=== PATIENT | male | born 1980 | race Caucasian/White ===

== ENCOUNTER 2017-05-06 23:42 | Emergency (ER) | payer MEDICAID ==
[2017-05-07] MEDS ORDERED: Sodium Chloride 0.9% 1,000 ML IV ONE (00:09)
--- NOTE | 2017-05-07 00:14 | ED Physician Chart ---
Chief Complaint/HPI - Patient Information Date Seen:: 05/07/17 Time Seen:: 00:09 Chief Complaint:: etoh History of Present Illness:: pt brought in by ems after was found outside a bar w obv etoh intoxication. pt says he fell and hit his head this am. no loc. no neck pain. denies he had any medical eval since then. pt denies any recent medical care elsewhere but has tape on rt arm and recent needle ranjeet/puncture in rt antecubital vein...pt story changes when I point this out...he first denies any recent dr visits then admits was at [facility] sometime after this is pointed out to pt. Allergies:: Allergies Allergy/AdvReac Type Severity Reaction Status Date / Time No Known Allergies Allergy Verified 05/07/17 00:07 Historian:: Patient, EMS Review:: Transfer documents Reviewed Review of Systems - Review of Systems General/Constitutional: No fever, No chills, No weight loss, No weakness, No diaphoresis, No edema, No loss of appetite Skin: No skin lesions, No rash, No bruising Head: No headache, No light-headedness Eyes: No loss of vision, No pain, No diplopia ENT: No earache, No nasal drainage, No sore throat, No tinnitus Neck: No neck pain, No swelling, No thyromegaly, No stiffness, No mass noted Cardio Vascular: No chest pain, No palpitations, No PND, No orthopnea, No edema Pulmonary: No SOB, No cough, No sputum, No wheezing GI: No nausea, No vomiting, No diarrhea, No pain, No melena, No hematochezia, No constipation, No hematemesis G/U: No dysuria, No frequency, No hematuria Musculoskeletal: No bone or joint pain, No back pain, No muscle pain Endocrine: No polyuria, No polydipsia Psychiatric: No prior psych history, No depression, No anxiety, No suicidal ideation Hematopoietic: No bruising, No lymphadenopathy Allergic/Immuno: No urticaria, No angioedema Neurological: No syncope, No focal symptoms, No weakness, No paresthesia, No headache, No seizure, No dizziness, No confusion, No vertigo, Other (etoh intoxication) Past Medical History - Past Medical History Past Medical History: No significant medical hx Social History: Alcohol Medication: Reviewed Family Medical History - Family Member Mother History Unknown: Yes Physical Exam - Physical Examination General/Constitutional: Awake, Well-developed, well-nourished, Alert, No distress, GCS 15, Non-toxic appearing, Ambulatory Other Head comments:: abrasion rt forehead//clean w band aid applied. no infection. no active bleed. perrla, eomi, wn/wh. color ok. Eyes: Lids, conjuctiva normal, PERRL, EOMI Skin: Nl inspection, No rash, No skin lesions, No ecchymosis, Well hydrated, No lymphadenopathy ENMT: External ears, nose nl, Nasal exam nl, Lips, teeth, gums nl Neck: Nontender, Full ROM w/o pain, No JVD, No nuchal rigidity, No bruit, No mass, No stridor Respiratory: Nl effort/Exclusion, Clear to Auscultation, No Wheeze/Rhonchi/Rales Cardio Vascular: RRR, No murmur, gallop, rubs, NL S1 S2 GI: No tenderness/rebounding/guarding, No organomegaly, No hernia, Normal BS's, Nondistended, No mass/bruits, No McBurney tenderness : No CVA tenderness Extremities: No tenderness or effusion, Full ROM, normal strength in all extremities, No edema, Normal digits & nails Neuro/Psych: Alert/oriented, DTR's symmetric, Normal sensory exam, Normal motor strength, Judgement/insight normal, Mood normal, Normal gait, No focal deficits Misc: normal gait, Normal back, No paraspinal tenderness Labs/Radiology/EKG Results - Radiology Results Results: ct head - no fx, no bleed. rt sup scalp hematoma ED Septic Shock - . Is Septic Shock (SBP<90, OR Lactate>4 mmol\L) present?: No
[2017-05-07 00:37] LABS: AMPHETAMINE URINE NEGATIVE (NEGATIVE); BARBITURATES URINE NEGATIVE (NEGATIVE); METHADONE URINE POSITIVE (NEGATIVE)
[2017-05-07 01:09] LABS: % BASOPHILS 0.4 % (0.0-2.0); % EOSINOPHILS 0.1 % (0.0-5.0); % LYMPHOCYTES 22.8 % (20.0-50.0); % MONOCYTES 9.8 % (2.0-10.0); % NEUTROPHILS 66.9 % (40.0-80.0); HEMATOCRIT 47.3 % (39.0-49.0); MEAN CELL VOLUME 98.1 fl (80-99); MEAN CORPUSCULAR HEMOGLOBIN 33.2 pg (26.0-30.0); MEAN CORPUSCULAR HGB CONC 33.8 pg (28.0-36.0); MEAN PLATELET VOLUME 6.9 fl; NEUTROPHILE ABSOLUTE 3.5 Th/cmm (1.8-8.0); PLATELET COUNT 143 Th/cmm (150-400); RED BLOOD COUNT 4.83 Mil/cmm (4.30-5.70); RED CELL DISTRIBUTION WIDTH 15.3 % (11.5-20.0); WHITE BLOOD COUNT 5.2 Th/cmm (4.8-10.8)
[2017-05-07 01:21] LABS: ALB/GLOB RATIO 1.2 (1.0-1.8); ALKALINE PHOSPHATASE 60 U/L (34-104); ANION GAP 15.1 (7.0-16.0); BILIRUBIN,TOTAL 0.5 mg/dL (0.3-1.0); BUN - UREA NITROGEN 7 mg/dL (7-25); CALCIUM SERUM 8.9 mg/dL (8.6-10.3); CARBON DIOXIDE 27.1 mEq/L (21.0-31.0); CHLORIDE 103 mEq/L (98-107); CREATININE - SERUM 0.7 mg/dL (0.7-1.3); GLUCOSE 108 mg/dL (70-105); POTASSIUM SERUM 3.2 mEq/L (3.5-5.1); SGOT 198 U/L (13-39); SGPT/ALT 133 U/L (7-52); SODIUM SERUM 142 mEq/L (136-145)
[2017-05-07] MEDS ORDERED: Multivitamin Inj 10 ML, Thiamine HCL 100 MG, Magnesium Sulfate 2 GM, Folic Acid 1 MG in... IV ONE (02:04)
[2017-05-07] MEDS ORDERED: Multivitamin Inj 10 mL Vial IV ONE (06:37)
--- NOTE | 2017-05-07 11:18 | Diagnostic Imaging Report ---
CT scan of the brain without intravenous contrast HISTORY: Headache, fall Total DLP equals 639 CTDI equals 36.0 Axial sections were obtained to the base of the skull the vertex. There is a normal ventricular system size. There is enlargement of cerebral sulci and subarachnoid cisterns reflecting atrophy somewhat pronounced for the patient's age. No acute parenchymal abnormalities. No intracerebral hemorrhage. No mass effect or shift of midline structures. No extra-axial masses or abnormal fluid collections. IMPRESSION: 1. Cerebral atrophy somewhat pronounced for patient's age. Significance should be correlated clinically. 2. No acute abnormalities
== END 2017-05-07 08:30 | disposition home or self-care (01) ==
LOC: ER 23:42
DX: F10.129 Alcohol abuse with intoxication, unspecified (principal)
CPT/HCPCS: 36415-UA; 70450-TC; 80053-TC; 80307; 80320-TC; 85025-TC; 96375; J2405; J7030; X6226; X6598